=== PATIENT | male | born 1940 | race Caucasian/White ===

== ENCOUNTER → 2018-04-19 06:52 | Outpatient (CLI) | payer MEDICARE, OTHER, SELFPAY ==
--- NOTE | 2018-04-19 07:01 | CT_ITS ---
STUDY: CTA OF THE BRAIN REASON FOR EXAM: Male, 77 years old. Vertigo. History of bladder carcinoma with chemotherapy. RADIATION DOSAGE (If Supplied By Facility): CTDIvol = ( 28.78 ) mGy, DLP = ( 1592.99 ) mGycm TECHNIQUE: CT angiography was performed with a multi-detector CT scanner. Data acquisition was obtained from the skull base through the vertex following intravenous administration of 75 ml of Isovue-370. MIP images were reconstructed from the axial data set. Post-processing of the angiographic images was performed, with multiplanar reformation and 3D reconstruction. Individualized dose optimization techniques were used for this CT. COMPARISON: None. FINDINGS: Normal bilateral petrous carotid arteries. There is calcified plaque formation of the right cavernous carotid artery, without a cross-sectional luminal stenosis. There is calcified plaque formation of the left cavernous carotid artery, without a cross-sectional luminal stenosis. There is hypoplastic development of the right A1 segment of the anterior cerebral arteries with an atretic but intact artery. Normal left A1 segments of the anterior cerebral artery. Normal intact anterior communicating artery (ACOM). Normal bilateral A2 segments of the anterior cerebral arteries. Normal right M1 and M2 segments of the middle cerebral arteries, with a normal M1 bifurcation. Normal left M1 and M2 segments of the middle cerebral arteries, with a normal M1 bifurcation. There is a persistent origin of the right posterior cerebral artery with absence of the posterior communicating artery (PCOM). Normal left posterior communicating artery (PCOM). Normal bilateral vertebral arteries. Normal basilar artery with a normal basilar bifurcation. The visualized bilateral superior cerebellar (SCA) arteries are normal. Normal bilateral P1, P2 and visualized P3 segments of the posterior cerebral arteries. There is no demonstrated aneurysm of the [place]. There is no demonstrated abnormality of the visualized brain. 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 Electronically Signed: Huber Flores MD at 15:45 EST Tel [phone], Service support ,
--- NOTE | 2018-04-19 07:01 | CT_ITS ---
STUDY: CTA NECK WITH CONTRAST REASON FOR EXAM: Male, 77 years old. Vertebral. Dizziness. Patient has a history of bladder cancer and chemotherapy and radiation therapy. RADIATION DOSAGE (If Supplied By Facility): CTDIvol = ( 28.78 ) mGy, DLP = ( 15424.99 ) mGycm TECHNIQUE: CT angiography with multi-detector data acquisition was performed from the aortic arch to the skull base following intravenous administration of 75 ml of Isovue 300 contrast. MIP images were reconstructed from the axial data set. Post-processing of the angiographic images was performed, with multiplanar reformation and 3D reconstruction. Individualized dose optimization techniques were used for this CT. COMPARISON: None. FINDINGS: AORTIC ARCH: There is atherosclerotic calcific plaque formation of the aortic arch and great vessels arising from the aortic arch, without a hemodynamically significant stenosis. There is a bovine origin of the great vessels with a common origin of the brachiocephalic and left common carotid artery. Normal origin of the left subclavian artery. RIGHT CAROTID ARTERIES: Normal right common carotid artery (CCA). Normal right common carotid bulb. There is extensive atherosclerotic plaque formation of the origin of the right internal carotid artery with an estimated stenosis of greater than 70%. Normal visualized cervical portion of the right internal carotid artery. Normal origin of the right external carotid artery (ECA). LEFT CAROTID ARTERIES: Normal left common carotid artery (CCA). Normal left common carotid bulb. There is moderate atherosclerotic plaque formation of the origin of the left internal carotid artery with an estimated stenosis of 50-69% stenosis. Normal visualized cervical portion of the left internal carotid artery. Normal origin of the left external carotid artery (ECA). VERTEBRAL ARTERIES: Normal bilateral vertebral arteries. CT/CTA Neck W/WO Contrast IMPRESSION: Atherosclerotic plaque formation at the origin of the right internal carotid artery causing a greater than 70% narrowing. Atherosclerotic calcific plaque at the origin of the left internal carotid artery causing between 50 and 69% stenosis. Electronically Signed: Huber Flores MD at 15:43 EST Tel [phone], Service support ,
[2018-04-19 07:16] LABS: CREATININE FINGERSTICK 1.8 mg/dL (0.70-1.30)
== END ==
PROVIDERS: Family Provider Family Medicine; PCP Family Medicine; Referring Provider Family Medicine; Visit Provider Family Medicine
DX: R55 Syncope and collapse (principal); H81.49 Vertigo of central origin, unspecified ear
CPT/HCPCS: 70496; 70498; 93880; Q9967; A4216

== ENCOUNTER → 2020-04-17 08:29 | Outpatient (CLI) | payer MEDICARE, OTHER, SELFPAY ==
[2018-05-14 12:51] VITALS: BMI 27.3
[2020-04-17 12:15] LABS: Absolute Lymphocyte Count 1.06 X10^3/uL (0.83-4.51); Absolute Neutrophil Count 3.7 X10^3/uL (2.0-7.7); Basophil# 0.03 X10^3/uL; Basophil% 0.6 % (0-1); Eosinophil# 0.09 X10^3/uL; Eosinophils% 1.7 % (0-5); Hematocrit 38.6 % (40-54); Hemoglobin 12.5 g/dL (13.0-16.5); Lymphocyte # 1.06 X10^3/ul (4.0); Lymphocyte % 19.8 % (19-41); Mean Corp Hgb Conc 32.4 g/dL (32-36); Mean Corpuscular Volume 95.8 fL (80-94); Mean Platelet Vol. 11.1 fl (6.2-12.0); Monocyte% 9.3 % (0-10); NRBC Flagged by Analyzer 0 % (0-5); Neutrophil # 3.66 X10^3/uL (2.7-7.7); Neutrophil % 68.4 % (47-70); Platelet Count 217 K/mm3 (150-450); RBC Distribution Width CV 12.9 % (11.6-14.6); Red Blood Count 4.03 M/mm3 (4.6-6.2); White Blood Count 5.4 K/mm3 (4.4-11.0)
[2020-04-17 12:31] LABS: ALB/GLOB Ratio 0.9 RATIO (0.9-2.4); AST(SGOT) 40 U/L (15-37); Alanine Aminotransfer ALT/SGPT 57 U/L (16-61); Albumin, Serum 3.4 g/dL (3.2-5.0); Alkaline Phosphatase 102 U/L (45-117); BUN 24 mg/dL (7-18); Calcium,Total 8.3 mg/dL (8.5-10.1); Chloride 110 mmol/L (98-107); Creatinine, Serum 1.71 mg/dL (0.70-1.30); EST Glomerular Filtration Rate 41 mL/min (>60); Est Glom Filt Rate - Afr Amer 50 mL/min (>60); Globulin 3.9 g/dL (2.2-4.2); Glucose 100 mg/dL (74-106); Protein, Total 7.3 g/dL (6.4-8.2); Sodium Level 140 mmol/L (136-145)
[2020-04-17 12:32] LABS: Anion Gap 6 (5-15); PSA,Total- Diagnostic < 0.01 ng/mL (0.0-4.0)
[2020-04-17 12:59] LABS: Erythrocyte Sedimentation Rate 21 mm/hr (0-20)
== END ==
PROVIDERS: PCP Family Medicine; Visit Provider Family Medicine
DX: R10.9 Unspecified abdominal pain (principal); R19.7 Diarrhea, unspecified; Z85.46 Personal history of malignant neoplasm of prostate
CPT/HCPCS: 36415; 80053; 84153; 85025; 85652; 86140

== ENCOUNTER 2020-07-09 11:04 | Outpatient (RCR) | payer MEDICARE, OTHER, SELFPAY ==
[2018-05-14 12:51] VITALS: BMI 27.3
== END 2020-07-09 23:59 ==
LOC: IMMUN 11:04
PROVIDERS: PCP Family Medicine; Visit Provider Family Medicine
DX: Z23 Encounter for immunization (principal)
CPT/HCPCS: 0011A; 0012A; 91301

== ENCOUNTER → 2021-01-26 09:40 | Outpatient (CLI) | payer MEDICARE, OTHER, SELFPAY ==
[2018-05-14 12:51] VITALS: BMI 27.3
--- NOTE | 2021-01-26 09:41 | CDU_ITS ---
Reason For Study: CAROTID STENOSIS Rt. Velocities/BP Lt. Velocities/BP Prox CCA 95.0/12.9 cm/sec. Prox CCA 108.0/18.6 cm/sec. Mid CCA 114.2/13.8 cm/sec. Mid CCA 120.2/23.5 cm/sec. Dist CCA 82.9/12.5 cm/sec. Dist CCA 103.8/23.5 cm/sec. Prox ICA 113.1/19.9 cm/sec. Prox ICA 111.2/23.6 cm/sec. Mid ICA 102.1/18.1 cm/sec. Mid ICA 127.7/30.9 cm/sec. Dist ICA 97.2/16.8 cm/sec. Dist ICA 129.5/32.7 cm/sec. Rt. ICA/CCA = 113.1/114.2=1.0. Lt. ICA/CCA = 129.5/120.2=1.1. Prox ECA 201.0/5.7 cm/sec. Prox ECA 209.8/19.1 cm/sec. Rt. Vert. 80.7/15.0 cm/sec. Lt. Vert. 32.3/8.7 cm/sec. Right Extracranial There is homogeneous, smooth atherosclerotic plaque noted in the right common carotid artery. There is heterogeneous, irregular atherosclerotic plaque noted in the right internal carotid artery. There is heterogeneous, irregular atherosclerotic plaque noted in the right external carotid artery. Antegrade flow is noted in the right vertebral artery. Left Extracranial There is homogeneous, smooth atherosclerotic plaque noted in the left common carotid artery. There is heterogeneous, irregular atherosclerotic plaque noted in the left internal carotid artery. The atherosclerotic plaque causes acoustic shadowing. There is heterogeneous, irregular atherosclerotic plaque noted in the left external carotid artery. Antegrade flow is noted in the left vertebral artery. VL/Carotid Duplex Ultrasound Interpretation Summary Irregular calcific plaque at the proximal right internal carotid artery with le ss than 50% stenosis. Greater than 50% stenosis right external carotid artery Irregular calcific plaque at the proximal left internal and external carotid ar teries 50 to 69% stenosis left mid internal carotid artery Greater than 50% stenosis left external carotid artery Patent and antegrade vertebral arteries bilaterally Mild progression of disease on the left from the previous examination of 2017 Ordering Physician: Darwin Gould Referring Physician: Shameka Rome Performed By: Rosa Greene RDCS, RVT
== END ==
PROVIDERS: PCP Family Medicine; Referring Provider Surgery; Visit Provider Surgery
DX: I65.23 Occlusion and stenosis of bilateral carotid arteries (principal)
CPT/HCPCS: 93880

== ENCOUNTER → 2021-02-03 07:20 | Outpatient (CLI) | payer MEDICARE, OTHER, SELFPAY ==
[2021-02-03 07:31] LABS: Absolute Lymphocyte Count 1.65 X10^3/uL (0.83-4.51); Absolute Neutrophil Count 4.5 X10^3/uL (2.0-7.7); Basophil# 0.05 X10^3/uL; Basophil% 0.7 % (0-1); Eosinophil# 0.17 X10^3/uL; Eosinophils% 2.3 % (0-5); Hematocrit 41.4 % (40-54); Hemoglobin 13.8 g/dL (13.0-16.5); Lymphocyte # 1.65 X10^3/ul (0.83-4.51); Lymphocyte % 22.8 % (19-41); Mean Corp Hgb Conc 33.3 g/dL (32-36); Mean Corpuscular Hgb 32.3 pg (27.0-32.0); Mean Platelet Vol. 9.7 fl (6.2-12.0); NRBC Flagged by Analyzer 0 % (0-5); Neutrophil # 4.53 X10^3/uL (2.7-7.7); Neutrophil % 62.5 % (47-70); Platelet Count 207 K/mm3 (150-450); RBC Distribution Width CV 13.7 % (11.6-14.6); RBC Distribution Width SD 49.1 fl (35.1-43.9); Red Blood Count 4.27 M/mm3 (4.6-6.2); White Blood Count 7.3 K/mm3 (4.4-11.0)
[2021-02-03 08:10] LABS: Anion Gap 5 (5-15); BUN 28 mg/dL (7-18); BUN/Creat Ratio 16.1 RATIO (10-20); Calcium,Total 9.1 mg/dL (8.5-10.1); Chloride 111 mmol/L (98-107); Cholesterol 211 mg/dL (200); Creatinine, Serum 1.74 mg/dL (0.70-1.30); EST Glomerular Filtration Rate 40 mL/min (>60); Est Glom Filt Rate - Afr Amer 49 mL/min (>60); Glucose 105 mg/dL (74-106); High Density Lipoprotein 63 mg/dL; Potassium 3.9 mmol/L (3.5-5.1); Sodium Level 140 mmol/L (136-145); Triglycerides 130 mg/dL; Very Low Density Lipoprotein 26 mg/dL (5-40)
== END ==
PROVIDERS: PCP Family Medicine; Referring Provider Surgery; Visit Provider Surgery
DX: I65.23 Occlusion and stenosis of bilateral carotid arteries (principal)
CPT/HCPCS: 36415; 80048; 80061; 85025

== ENCOUNTER → 2021-02-22 09:33 | Outpatient (CLI) | payer MEDICARE, OTHER, SELFPAY ==
--- NOTE | 2021-02-22 09:36 | ART_ITS ---
Reason For Study: PVD Procedure A bilateral lower extremity continuous wave Doppler with analog waveform analysis,segmental pressures,and ankle brachial indexes with exercise. Left Segmental Pressures Left brachial= 148mmHg. Left thigh = 107mmHg. Left calf = 107mmHg. Left posterior tibial artery = 119mmHg. Left dorsalis pedis artery = 80mmHg. Left digit = 40 mmHg. The left dorsalis pedis waveforms are monophasic. The left posterior tibial artery waveforms are monophasic. Right Segmental Pressures Right brachial= 156mmHg. Right posterior tibial artery = 243mmHg. Right dorsalis pedis artery = 200mmHg. Right digit = 55 mmHg. The right dorsalis pedis waveforms are monophasic. The right posterior tibial artery waveforms are biphasic. Indices The right ankle brachial index by the dorsalis pedis is 1.28. The right ankle brachial index by the posterior tibial artery is 1.56. The right digital-brachial index is 0.35. The right post exercise ankle brachial index is NC. The left ankle brachial index by the dorsalis pedis is 0.51. The left ankle brachial index by the posterior tibial artery is 0.76. The left digital-brachial index is 0.26. The left post exercise ankle brachial index is 0.22. VL/Lower Ext Art Exam w/ Exercise Interpretation Summary Abnormal right PT and DP ankle-brachial index of 1.56 and 1.28 respectively sug gesting medial calcification of vessel wall. The right posterior tibial Doppler waveform is bi phasic where the dorsalis pedis is only monophasic. This would be consistent with moderately sev ere disease. The exercise component of the right lower extremity could not be obtained due to no ncompressibility The left lower extremity PT and DP ankle-brachial indices of 0.76 and 0.51 are consistent with moderately severe occlusive disease. The left posterior tibial dorsalis pedis D oppler waveforms are only monophasic suggesting a more severe level of disease.With exercise the lef t MAYURI goes from 0.762 immediately after exercise at 0.22 and there is failure recovery by 9 minutes. This is abnormal. Abnormal bilateral digital brachial indices noted at rest Ordering Physician: Darwin Gould Referring Physician: Shameka Rome Performed By: Mechelle Whitfield RVT
== END ==
PROVIDERS: PCP Family Medicine; Referring Provider Surgery; Visit Provider Surgery
DX: I73.9 Peripheral vascular disease, unspecified (principal)
CPT/HCPCS: 93924

== ENCOUNTER → 2021-11-16 | Outpatient (CLI) | payer MEDICARE, OTHER, SELFPAY | END | disposition home or self-care (01) | PROVIDERS: PCP Family Medicine; Visit Provider Family Medicine | DX: N39.0 Urinary tract infection, site not specified (principal) | CPT/HCPCS: 87077; 87086; 87088; 87186 ==

== ENCOUNTER → 2021-12-21 | Outpatient (CLI) | payer MEDICARE, OTHER, SELFPAY ==
--- NOTE | 2021-12-21 14:02 | CDU_ITS ---
Reason For Study: Carotid stenosis Rt. Velocities/BP Lt. Velocities/BP Prox CCA 108.6/13.4 cm/sec. Prox CCA 99.8/16.3 cm/sec. Mid CCA 104.7/13.4 cm/sec. Mid CCA 109.7/16.3 cm/sec. Dist CCA 78.6/9.5 cm/sec. Dist CCA 85.1/15.1 cm/sec. Prox ICA 110.4/22.6 cm/sec. Prox ICA 85.1/21.2 cm/sec. Mid ICA 112/22.5 cm/sec. Mid ICA 115.6/27.9 cm/sec. Dist ICA 121.1/24.3 cm/sec. Dist ICA 119.3/29.8 cm/sec. Rt. ICA/CCA = 1.16. Lt. ICA/CCA = 1.20. Prox ECA 226.1/6 cm/sec. Prox ECA 196/13.8 cm/sec. Rt. Vert. 54.2/13.5 cm/sec. Lt. Vert. 47.5/10.7 cm/sec. Right Extracranial There is homogeneous, smooth atherosclerotic plaque noted in the right common carotid artery. There is heterogeneous, irregular atherosclerotic plaque noted in the right internal carotid artery. There is heterogeneous, irregular atherosclerotic plaque noted in the right external carotid artery. Antegrade flow is noted in the right vertebral artery. Left Extracranial There is homogeneous, smooth atherosclerotic plaque noted in the left common carotid artery. There is heterogeneous, irregular atherosclerotic plaque noted in the left internal carotid artery. There is heterogeneous, irregular atherosclerotic plaque noted in the left external carotid artery. Antegrade flow is noted in the left vertebral artery. Procedure Carotid Duplex 94355. This is a Carotid Duplex examination using B-mode, color flow and specral Doppler. Exam performed in department. VL/Carotid Duplex Ultrasound Interpretation Summary Regular calcific plaque with shadowing right proximal internal carotid artery w ith less than 50% stenosis Greater than 50% stenosis right external carotid artery Irregular calcific plaque at the proximal left internal carotid artery with les s than 50% stenosis Less than 50% stenosis left external carotid artery Patent and antegrade vertebral arteries bilaterally Since the previous examination of January 26, 2021 the previously noted slight v elocity elevation within left internal carotid artery is not identified and findings are consiste nt with less than 50% stenosis in the internal carotid artery though close to this level. Ordering Physician: Darwin Gould Referring Physician: Shameka Rome Performed By: Mechelle Whitfield RVT
== END | disposition home or self-care (01) ==
LOC: CVS 14:00
PROVIDERS: PCP Family Medicine; Visit Provider Surgery
DX: I65.23 Occlusion and stenosis of bilateral carotid arteries (principal)
CPT/HCPCS: 93880

== ENCOUNTER → 2022-05-26 | Outpatient (CLI) | payer MEDICARE, OTHER, SELFPAY ==
--- NOTE | 2022-05-26 06:57 | CT_ITS ---
INDICATION: constipation EXAMINATION: CT ABDOMEN AND PELVIS WITH CONTRAST - CT Abdomen And Pelvis W/ Contrast Injection TECHNIQUE: Helically acquired images were obtained of the abdomen and pelvis following IV contrast. A radiation dose optimization technique was used for this scan. IV Contrast dosage and agent: 100 mL Isovue-300 Oral contrast: None. COMPARISON: Lumbar spine MRI March 10, 2015. FINDINGS: LOWER CHEST: Lung bases are clear. No cardiomegaly or pericardial effusion. Bulky marginal or calcifications. LIVER: Homogeneous parenchyma. Mild hepatomegaly.. No evidence of focal mass. GALLBLADDER AND BILIARY TREE: No calcified gallstones. No gallbladder distension or wall edema. No intra- or extrahepatic biliary ductal dilation. PANCREAS: Limited pancreas. No ductal ectasia. 6.5 mm cystic lesion within the pancreatic tail, axial image 26.. SPLEEN: Normal size without focal cystic or solid mass. ADRENAL GLANDS: No nodules. KIDNEYS AND URETERS: Normal renal size and position. No hydronephrosis. Minimal bilateral perinephric stranding which is likely senescent. No ureteral dilatation, extending to right pelvic ileal conduit. Bladder is surgically absent without evidence of recurrent mass in the surgical bed. PERITONEUM: No ascites or free air. No abscess. BOWEL: No acute gastric finding. No small bowel obstruction or focal wall thickening. Right anterior pelvic ileoconduit noted.. Normal appendix. Moderate colonic stool burden. Distal colonic diverticulosis with mild wall thickening and minimal adjacent inflammatory stranding of the sigmoid colon, sagittal image 97 LYMPH NODES: No enlarged mesenteric or retroperitoneal lymph nodes. VESSELS: Aortic atherosclerosis with mild infrarenal ectasia to 2.8 cm.. URINARY BLADDER: Unremarkable. REPRODUCTIVE ORGANS: Mall bilateral hydroceles. ABDOMINAL WALL: No discrete abdominal or pelvic wall hernia. BONES: No lytic or blastic abnormality. Lumbar laminectomy changes with posterior transpedicular fixation. No evidence of critical spinal canal stenosis. CT/Abdomen/Pelvis WITH Contrast IMPRESSION: Distal colonic diverticulosis with minimal wall thickening and adjacent inflammatory stranding at the sigmoid colon which can be seen with acute uncomplicated diverticulitis in the appropriate setting. Moderate proximal to the mid colonic stool burden. 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 Consider pancreatic MRI and MRCP with and without IV contrast to further characterize if not stable on prior exams. Status post cystectomy with ileoconduit without evidence of complication. Aortic atherosclerosis with mild infrarenal ectasia to 2.8 cm. Small scrotal hydroceles. Electronically Signed: Bobo Burton MD at 8:16 EST ,
[2022-05-26 07:30] LABS: CREATININE FINGERSTICK 1.6 mg/dL (0.70-1.30)
== END | disposition home or self-care (01) ==
LOC: CT 06:56
PROVIDERS: PCP Family Medicine; Referring Provider Internal Medicine Gastroenterology; Visit Provider Internal Medicine Gastroenterology
DX: K57.30 Diverticulosis of large intestine without perforation or abscess without bleeding (principal); I77.811 Abdominal aortic ectasia; I70.0 Atherosclerosis of aorta; R16.0 Hepatomegaly, not elsewhere classified; N43.3 Hydrocele, unspecified
CPT/HCPCS: 74177; Q9967

== ENCOUNTER → 2022-06-24 | Outpatient (CLI) | payer MEDICARE, OTHER, SELFPAY ==
--- NOTE | 2022-06-24 12:08 | MRI_ITS ---
Examination: MR MRCP without contrast. INDICATION: Question pancreatic cyst. TECHNIQUE: Multiplanar multisequence T1 and T2-weighted images were obtained. In addition a 3-D postprocessing MRCP was obtained and reviewed. COMPARISON: CT dated May 26, 2022 FINDINGS: The lung bases are clear. The liver, gallbladder spleen are within normal limits. Within the tail of the pancreas there is a 1.6 x 0.7 cm T1 hypointense and T2 hyperintense round focus consistent with a cyst. There is possible communication with the pancreatic duct. There is no pancreatic atrophy. The adrenal glands and kidneys are within normal limits. The stomach and visualized loops of small bowel are within normal limits. There is a colostomy within the right lower abdomen. There are degenerative changes of the visualized thoracic and lumbar spine. There are postsurgical changes of L5-S1. 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 Electronically Signed: Keiko Colvin MD at 16:52 EST ,
== END | disposition home or self-care (01) ==
LOC: MRI 12:08
PROVIDERS: PCP Family Medicine; Referring Provider Internal Medicine Gastroenterology; Visit Provider Internal Medicine Gastroenterology
DX: Z93.3 Colostomy status (principal); K86.2 Cyst of pancreas
CPT/HCPCS: 74181

== ENCOUNTER → 2022-08-08 | Outpatient (CLI) | payer MEDICARE, OTHER, SELFPAY ==
[2022-08-08 16:57] LABS: Amylase 46 U/L (25-115); CRP 8.63 mg/L (0.0-3.0); Lipase 252 U/L (73-393)
[2022-08-08 17:36] LABS: Erythrocyte Sedimentation Rate 8 mm/hr (0-20)
[2022-08-10 19:49] LABS: Carbohydrate AG 19-9 8 U/mL (0-35)
== END | disposition home or self-care (01) ==
LOC: LAB 15:41
PROVIDERS: PCP Family Medicine; Visit Provider Internal Medicine Gastroenterology
DX: K57.92 Diverticulitis of intestine, part unspecified, without perforation or abscess without bleeding (principal); C25.9 Malignant neoplasm of pancreas, unspecified; D49.0 Neoplasm of unspecified behavior of digestive system
CPT/HCPCS: 36415; 82150; 83690; 85652; 86140; 86301

== ENCOUNTER → 2022-11-25 | Outpatient (CLI) | payer MEDICARE, OTHER, SELFPAY ==
--- NOTE | 2022-11-25 15:22 | MRI_ITS ---
EXAM: MR ABDOMEN WITHOUT INTRAVENOUS CONTRAST, MRCP PROTOCOL CLINICAL INDICATION: surveillance IPMN TECHNIQUE: Multiplanar and multisequence MR images of the abdomen without intravenous contrast obtained with MRCP sequence. Three-dimensional post-processing reconstructions were performed. COMPARISON: CT May 26, 2022, MRCP June 24, 2022 FINDINGS: LOWER THORAX: Unremarkable. No pleural effusion. LIVER: Unremarkable. Normal morphology. GALLBLADDER AND BILE DUCTS: Common bile duct 6 mm at its midportion, tapering to 3 mm distally. No gallstones. No gallbladder distention or wall edema. PANCREAS: The cystic lesion mentioned in the tail of the pancreas appears stable from June 24, 2022, measuring roughly 1 cm maximum diameter on axial 2-D fat sat the estimated imaging compared to prior similar series. No significant dilated duct, duct in the proximal pancreas 3 mm. SPLEEN: Unremarkable. Non-enlarged. ADRENALS: Unremarkable. No nodules. KIDNEYS AND URETERS: Unremarkable. Normal renal size and position. No hydronephrosis. INTRAPERITONEAL SPACE: Unremarkable. No ascites or other fluid collection. BONES/JOINTS: On review of the CT from May 26, 2022 estimated maximum diameter 1 cm on axial images and 9 mm craniocaudal, with similar appearance on T2 weighted images, roughly 9 mm craniocaudal currently. VASCULATURE: Unremarkable. Abdominal aorta is non-dilated. LYMPH NODES: No enlarged lymph nodes. MRI/MRCP Abdomen without Contrast IMPRESSION: 1. Stable small cystic lesion in the pancreas tail compared to June 24, 2022. Follow-up pancreas protocol unenhanced CT or MRI recommended in 2 years. 2. The recommendation is based on: incidentally discovered cystic lesion in an asymptomatic patient 80 years of age or older, with a lesion less than 2.5 cm, with documented stability of less than 4 years and ACR White Paper guidelines (Fredi et al. JACR 2017; 14(7):911-923) suggest a contrast-enhanced, pancreas-protocol abdominal CT or MR in 2 years. Electronically Signed: Neli Yu MD at 22:48 EDT ,
== END | disposition home or self-care (01) ==
LOC: MRI 15:18
PROVIDERS: PCP Family Medicine; Referring Provider Nurse Practitioner Adult Health; Visit Provider Nurse Practitioner Adult Health
DX: D49.0 Neoplasm of unspecified behavior of digestive system (principal)
CPT/HCPCS: 74181

== ENCOUNTER → 2023-01-09 | Outpatient (CLI) | payer MEDICARE, OTHER, SELFPAY ==
--- NOTE | 2023-01-09 07:32 | CT_ITS ---
STUDY: CT PELVIS WITH CONTRAST REASON FOR EXAM: Male, 82 years old. Pelvic pain RADIATION DOSAGE (If Supplied By Facility): CTDIvol = ( 25.01 ) mGy, DLP = ( 1065.29 ) mGycm TECHNIQUE: Transaxial imaging of the pelvis was performed without oral contrast. IV 100mL Isovue-370 was administered intravenously. Multiplanar coronal and sagittal images were reformatted. Individualized dose optimization techniques were used for this CT. COMPARISON: 05/26/2022 FINDINGS: Bladder is absent. There is a right lower quadrant ostomy noted, no complications. Normal visualized small intestine. Retained stool in the colon along scattered colonic diverticula but no CT evidence of acute diverticulitis, or obstruction. There is no pelvic fluid. There is no pelvic lymphadenopathy or mass lesion. There is diffuse atherosclerotic calcification of the pelvic arteries. No evidence of inguinal hernia, there are bilateral hydroceles, no evidence of decubitus ulcer or subcutaneous fluid collection. Degenerative changes noted throughout the visualized lumbar spine and pelvis, surgical hardware in the lower lumbar spine free of complication, no suspicious lytic or blastic bony lesion. CT/Pelvis WITH IV Contrast IMPRESSION: No free pelvic fluid air or suspicious adenopathy Scattered colonic diverticula, no CT evidence of acute diverticulitis Bladder is surgically absent, no mass in the surgical bed. Right lower quadrant ostomy free of complication Degenerative bony changes Electronically Signed: Benny Gandhi MD at 9:00 EDT ,
[2023-01-09 07:56] LABS: CREATININE FINGERSTICK 2.2 mg/dL (0.70-1.30)
== END | disposition home or self-care (01) ==
LOC: CT 07:31
PROVIDERS: PCP Family Medicine; Referring Provider Urology; Visit Provider Urology
DX: C60.9 Malignant neoplasm of penis, unspecified (principal)
CPT/HCPCS: 72193; Q9967; A4216

== ENCOUNTER 2023-01-13 12:09 | Observation (INO) | payer MEDICARE, OTHER, SELFPAY ==
--- NOTE | 2023-01-09 07:29 | EKG12_ITS ---
Test Reason : PRE-OP Blood Pressure : / mmHG Vent. Rate : 058 BPM Atrial Rate : 058 BPM P-R Int : 212 ms QRS Dur : 144 ms QT Int : 464 ms P-R-T Axes : 056 -14 084 degrees QTc Int : 455 ms Sinus bradycardia with 1st degree A-V block Left bundle branch block Abnormal ECG No previous ECGs available Confirmed by BUTCH ZAMBRANO, TOÑITO ([id number]), health editor DENILSON IRAHETA ([id number]) on 01/09/2023 1:25:54 PM Referred By: Alfonso Donahue Confirmed By:TOÑITO RAE MD
[2023-01-09 08:53] LABS: Hematocrit 32.8 % (40-54); Hemoglobin 10.4 g/dL (13.0-16.5); Mean Corp Hgb Conc 31.7 g/dL (32-36); Mean Corpuscular Hgb 30.9 pg (27.0-32.0); Mean Corpuscular Volume 97.3 fL (80-94); Mean Platelet Vol. 10.4 fl (6.2-12.0); Platelet Count 253 K/mm3 (150-450); RBC Distribution Width CV 13.4 % (11.6-14.6); RBC Distribution Width SD 48.1 fl (35.1-43.9); Red Blood Count 3.37 M/mm3 (4.6-6.2); White Blood Count 7.9 K/mm3 (4.4-11.0)
[2023-01-09 09:29] LABS: Anion Gap 5 (5-15); BUN 31 mg/dL (7-18); BUN/Creat Ratio 16.8 RATIO (10-20); Calcium,Total 8.6 mg/dL (8.5-10.1); Chloride 106 mmol/L (98-107); Creatinine, Serum 1.85 mg/dL (0.70-1.30); EST Glomerular Filtration Rate 37 mL/min (>60); Est Glom Filt Rate - Afr Amer 45 mL/min (>60); Glucose 104 mg/dL (74-106); Sodium Level 133 mmol/L (136-145)
[2023-01-13] VITALS (9 sets, daily range): BP systolic 138–187; BP diastolic 56–77; PULSE 67–113; RESP 16–18; TEMP 36.4–36.9; O2SAT 96–97; BMI 23.3
--- NOTE | 2023-01-13 | IMM_PTH ---
PATIENT: STEVIE VANG LOC: [facility]3 U#:[id number] AGE/SX: 82/M ROOM: [facility] [place] RE01/13/[address]: Dr. Alfonso Donahue MD : 1940 BED: 1 DIS: 01/15/2023 SPEC #: [id number] RECD: 01/18/23 14:36 STATUS: LESLY REJannet #: [id number] AZIZA: 01/13/23 00:[address]: Alfonso Donahue DEPT: IMMUNOHISTOCHEMISTRY RECD BY: Stacey Varela ENTERED: 01/18/23 14:37 SP TYPE: IMMUNO OTHR DR: Dr. Shameka Rome, DO Tissues: Penis, NOS Procedures: p16 (initial) KI-67 (add) P16 (add) PHYSICIAN & INSTITUTION [place] [id number] SPECIMEN INFORMATION: Tissue Source: Penis Clinical Info: Penile cancer Specimen Number: [id number] #8 & 10 [facility] code: [id number], [id number] x3 METHODOLOGY: Deparaffinized sections of prefer/formalin-fixed tissue or PAP/DQ stained slides are incubated with monoclonal/polyclonal antibodies/oligonucleotide probes. Localization is made via biotin free immunoperoxidase method. Appropriate controls are performed and reacted as expected. Results on target cell population are indicated in the following table: RESULTS: ANTIBODY / CLONE RESULT Block 8 P16 (E6H4) positive, block staining Ki-67 (30-9) positive, high, >95% Block 10 P16 (E6H4) positive, block staining Ki-67 (30-9) positive, high, >95% These tests were developed and their performance characteristics determined by [facility]. They may not have been cleared or approved by the U.S. Food and Drug Administration. The FDA has determined that such clearance or approval is not necessary. The above immunohistochemical/dualISH markers are ordered and reviewed by the Pathologist. 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 JESSIE:jorge 01/19/2023
--- NOTE | 2023-01-13 12:50 | PEN_PTH ---
PATIENT: STEVIE VANG LOC: [facility]3 U#:[id number] AGE/SX: 82/M ROOM: IA321 RE01/13/[address]: Dr. Alfonso Donahue MD : [id number] BED: 1 DIS: 01/15/2023 SPEC #: [id number] RECD: 01/13/23 16:17 STATUS: LESLY UMANZOR #: [id number] AZIZA: 01/13/23 12:[address]: Alfonso Donahue DEPT: SURGICAL PATHOLOGY RECD BY: Eri Rossi ENTERED: 01/16/23 08:43 SP TYPE: PENIS OTHR DR: Dr. 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 See cancer summary in the comment section. SJ:jorge 01/18/2023 COMMENT PENIS CANCER SUMMARY: Procedure - total penectomy Foreskin - absent. Tumor focality - unifocal Tumor site - glans Tumor macroscopic features - cauliflower-like and ulcerated Tumor size - 5.5 x 4.5 cm and up to 2.5 cm in depth. Histologic type - squamous cell carcinoma, usual type. Histologic grade - grade 2-3, moderately to poorly differentiated Tumor thickness - 2.5 cm Tumor deep border - pushing (broadly based) Tumor extent - invades dermis and dartos fascia and focally into the dartos muscle. Distal urethral tip also shows high grade intraepithelial neoplasia/squamous cell carcinoma in situ. Lymphvascular invasion - not identified Perineural invasion - present, focal Margin status for invasive carcinoma - all margins are negative for invasive carcinoma. Distance from invasive carcinoma to closest margin - at least 3.0 cm Margin status for noninvasive carcinoma/carcinoma in situ - all margins negative for noninvasive carcinoma/carcinoma in situ. Regional lymph nodes - no lymph nodes submitted or found. 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 Ancillary studies - Please refer to IHC [id number]. PATHOLOGIC STAGE: pT1b pNx pMx The above summary is in compliance with [employer] (CAP) Cancer Protocols Checklist and [place] [employer] on Cancer (AJCC), Staging Manual, 8th Ed. Case has been reviewed in consultation with Dr. Arreaga who concurs with the above diagnosis. IDC:AM MICROSCOPIC DESCRIPTION Slides are reviewed. GROSS DESCRIPTION Received in fixative is one container labeled with the patient's name and designated penis. The specimen consists of a complete penectomy specimen measuring 12.0 x 4.0 x 4.0 cm. Most distal portion shows a portion of skin which measures up to 3.5 cm in length. Foreskin is absent. The glans penis is completely replaced by a vidal, cauliflower-like ulcerated mass measuring 5.5 x 4.5 cm. This mass invades up to a depth of 2.5 cm. The mass does not appear to be involved grossly invade into the corpora cavernosa or corpus spongiosum. The skin resection margins appear to be free of mass lesion. The specimen is inked as follows: most proximal margin - black and rest of the resection margin - blue. The skin resection margins is grossly free of the tumor. Sections of the tumor reveal vidal, solid cut surfaces. Flavor Room Worker sections are submitted as follows: 1 - most proximal resection margin, 2 & 3 - skin margin, enface, 4-11 - tumor (cassettes 6-8 contain the tumor with adjacent portion of corpora cavernosa and corpus spongiosum, cassettes 9-11 contain the tumor with glans penis and coronal sulcus), 12 & 13 - uninvolved corpora cavernosa, 14 - uninvolved corpora spongiosum. / SJ:jorge 01/17/2023 TC:0 [facility]: [id number]
[2023-01-13] MEDS: Lactated Ringers 1,000 ML 15 ML IV ×2 (12:52→16:20)
--- NOTE | 2023-01-13 14:05 | PCM.HP.STD ---
[facility] - General General Date of Admission: 01/13/23 Chief Complaint: penile cancer HPI Narrative STEVIE VANG, is a 82 M who presents for a total penectomy for penile cancer [facility] Medical History (Updated 01/03/23 @ 09:07 by Tiffanie Julian) Abdominal pain Arthritis Bladder cancer Bladder disease Cancer Carotid stenosis, bilateral Colitis Diverticulosis GERD (gastroesophageal reflux disease) Gout High cholesterol History of echocardiogram History of stress test HTN (hypertension) Osteoarthritis Prostate cancer Pulmonary nodule Syncope Wears dentures Wears glasses Wears hearing aid Home Medications omeprazole 20 mg capsule,delayed release 20 mg PO DAILY REFLUX 05/14/18 [History Last Taken 01/13/23 07:00] aspirin 81 mg tablet,delayed release 81 mg PO DAILY 03/01/21 [History Last Taken Unknown] lactulose 10 gram/15 mL oral solution 10 g (15 mL) PO DAILY #237 mL 05/23/22 [Rx Last Taken Unknown] dicyclomine 10 mg capsule 10 mg PO TID abdominal pain/spasms #270 caps 11/15/22 [Rx Last Taken 01/13/23 07:00] amlodipine 10 mg tablet 10 mg PO DAILY HIGH BLOOD PRESSUR 01/03/23 [History Last Taken 01/13/23 07:00] rosuvastatin 10 mg tablet 10 mg PO DAILY 01/03/23 [History Last Taken Unknown] Allergy/AdvReac Type Severity Reaction Status Date / Time No Known Allergies Allergy Verified 01/13/23 12:45 Family History Mother Diabetes Father Heart disease Surgical History (Updated 01/03/23 @ 09:07 by Tiffanie Julian) History of arthroscopy History of carpal tunnel release History of creation of ostomy History of hernia repair (~1969) History of lumbar fusion History of prostatectomy History of total cystectomy Social History Smoking Status: Former smoker alcohol intake: current alcohol intake frequency: 3 or more drinks per day Alcohol type: beer Vital Signs Vital Signs Vital Signs: 01/13/23 12:48 01/13/23 12:48 Temperature 98.1 F Temperature Source Temporal Pulse Rate 67 Respiratory Rate 18 Respiratory Pattern Normal Blood Pressure 167/61 H Blood Pressure Mean 96 Blood Pressure Source Monitor Blood Pressure Position Sitting Blood Pressure Location Left Arm Pulse Ox 97 Oxygen Delivery Method Room Air Weight Weight: 69.6 kg Body Mass Index (BMI) 23.3 Results Lab / Micro Data 01/09/23 08:10 01/09/23 08:10
--- NOTE | 2023-01-13 14:27 | DCINST_ITS ---
Discharge Instructions Diet Discharge Diet: No restrictions and Light diet - advance as tolerated Activity Discharge Activity: Return to Normal Activity Dressing / Incision Cleanse incision/area with: Soap & Water and Keep Dressing Clean & Dry Follow Up Care Please Follow Up With: Alfonso Donahue MD When: call for appt to remove drains Test Results: Test results from this visit will be discussed in further detail at your follow- up appointment, if applicable. Discharge Plan Admission Admit Date/Time: 01/13/23 12:09 Primary Reason for Your Visit: total penectomy for penile cancer Attending Provider: Alfonso Donahue Primary Care Provider: Shameka Rome Discharge Orders/Prescriptions Prescriptions: New oxycodone 5 mg tablet 5 mg PO Q6H PRN (Reason: pain) 7 Days Qty: 20 0RF cephalexin 500 mg capsule 500 mg PO TID Qty: 21 0RF Continued omeprazole 20 mg capsule,delayed release(DR/EC) 20 mg PO DAILY dicyclomine 10 mg capsule 10 mg PO TID Qty: 270 3RF amlodipine 10 mg tablet 10 mg PO DAILY Patient Comments: take 1 tablet by mouth once daily rosuvastatin 10 mg tablet 10 mg PO DAILY Patient Comments: take 1 tablet by mouth once daily lactulose 10 gram/15 mL solution 10 g PO DAILY Qty: 237 11RF Rx Instructions: May increase to two times a day as needed to promote bowel movement. Held aspirin 81 mg tablet,delayed release (DR/EC) 81 mg PO DAILY Hold Instructions: Resume on 01/27/23. Other Ambulatory Orders: 12 Lead EKG (Routine) Timeframe: 20230109 Location: None Selected Ordered By: Dr. Anoop Mays Referrals / Follow Up: Alfonso Donahue MD [Med Staff - Active Staff] - Shameka Rome DO [Primary Care Provider] - Disposition Disposition (needs filled in before D/C Order can be placed): Home, Self Care
[2023-01-13] MEDS: Cefazolin 2 GM in 0.9% Normal Saline 100 ML IV (14:40)
--- NOTE | 2023-01-13 15:57 | PCM.OPRPT ---
Report of Operation Date of Procedure: 01/13/23 Pre-Operative Diagnosis: Penile cancer Post-Operative Diagnosis: The same Surgery/Procedure Performed:: Total penectomy Description of Surgical Findings:: Indication is an 82-year-old male presents with a fungating mass at the end of the penis consistent with penile cancer today working to proceed with a total penectomy of note the patient has already had a cystectomy and removal of his prostate and has a diverting ileal conduit so all will be necessary today would be to proceed with the penectomy and diversion will be and not necessary since always been diverted. Patient was taken back to the operating room after smooth induction of anesthesia he was placed supine on the table the scrotum penis and testicles were prepped draped in the usual sterile fashion and shaved. I then made an elliptical incision around the base of the penis and then dissected sharply through the dermis layer down to the base of the penis circumferentially I then dissected along the urethra following the urethra as distally as parsed possible until it curled underneath the pubic bone and there was no further I could go any further and then I came across to the urethra with a right angle clamp and then transected the urethra and then oversewed the end of the urethra stump. I then followed the penis down on the right side following the Keral all the way down retropubically as far as possible and then used a right angle clamp to get down on the Keral body as far as possible and then clamped down on the Keral body and then transected the crural body to transect the right half of the penis. We then oversewed the crural body. I then went to the left side and went down as far as possible retropubically underneath the pubic bone on the curl body and then put a right angled on the Fredi body and then so this shot with continuous 0 Vicryl stitches we then put extra suture in the crural body and also then dorsal vein complex to control bleeding at the end with no oozing and there was good hemostasis I then placed 1 RIAZ drain deep in the space in the pelvis and then put a second space and then we reapproximated the scrotal skin to the pubic bone skin and reapproximated the skin layers together with 0 Vicryl and chromic stitches and then ran the skin closed with a 4-0 Monocryl. The penis was then taken as a specimen. And completed the complete penectomy and no diversion had to be done since he already has a diverting ileal conduit. Fluffs and dressings were placed the drains placed on suction and he was taken back to PACU in good condition he will recover in the hospital over the weekend. Surgeon: Alfonso Donahue Type of Anesthesia: General Drains: RIAZ drain x 2 Estimated Blood Loss (mL): 25 Admit VTE Documentation VTE Present on Admission: No VTE Mechan Device Prophylaxis: SCD's VTE Pharm Prophylaxis ordered?: No
--- NOTE | 2023-01-13 16:10 | EKG12_ITS ---
Test Reason : PRE OP Blood Pressure : / mmHG Vent. Rate : 070 BPM Atrial Rate : 070 BPM P-R Int : 184 ms QRS Dur : 168 ms QT Int : 468 ms P-R-T Axes : 063 003 126 degrees QTc Int : 505 ms Normal sinus rhythm Left bundle branch block Abnormal ECG When compared with ECG of 09-JAN-2023 07:52, QRS duration has increased QT has lengthened Confirmed by BUTCH ZAMBRANO, TOÑITO ([id number]), purchasing expeditor DENILSON IRAHETA ([id number]) on 01/17/2023 9:49:06 AM Referred By: Alfonso Donahue Confirmed By:TOÑITO RAE MD
[2023-01-13] MEDS: 0.9% Normal Saline 1,000 ML 125 ML IV (17:54)
[2023-01-13] MEDS: HYDROcodone Bitartrate/Apap 5/325 Tablet PO (19:03)
[2023-01-13] MEDS: Cefazolin 1 GM/50 ML BAG IV (23:36)
[2023-01-14] MEDS: 0.9% Normal Saline 1,000 ML 125 ML IV ×3 (02:01→18:12)
[2023-01-14 02:03] VITALS: BP 130/62; PULSE 61; RESP 18; TEMP 36.6; O2SAT 96
[2023-01-14] MEDS: HYDROcodone Bitartrate/Apap 5/325 Tablet PO ×3 (02:10→16:06)
[2023-01-14] MEDS: Cefazolin 1 GM/50 ML BAG IV (06:40)
[2023-01-14 07:14] VITALS: O2SAT 96
[2023-01-14 08:00] VITALS: BP 145/62; PULSE 62; RESP 18; TEMP 36.4; O2SAT 97
[2023-01-14] MEDS: Pantoprazole Sodium 20 MG Tablet PO (08:40)
[2023-01-14] MEDS: Dicyclomine 10 MG Capsule PO ×4 (08:40→21:47)
[2023-01-14] MEDS: amLODIPine 10 MG Tablet PO (08:40)
--- NOTE | 2023-01-14 08:47 | PCM.PN.GU ---
Subjective Subjective 82-year-old male status post penectomy for penile cancer doing well superficial drain is minimally draining deeper drain minimal output. He can get out of bed and ambulate walk shower etc. advance to regular diet Objective Data Objective Data Incision clean and intact RIAZ drains minimal output Vital Signs: Vital Signs Temp Pulse Resp BP Pulse Ox O2 Del Method 97.8 F 61 18 130/62 H 96 Room Air 01/14/23 02:03 01/14/23 02:03 01/14/23 02:03 01/14/23 02:03 01/14/23 07:14 01/14/23 07:14 Oxygen Delivery Method Room Air Weight: 69.6 kg Body Mass Index (BMI) 23.3 Intake & Output: Intake and Output for Last 24 Hours 01/12/23 01/13/23 01/14/23 23:59 23:59 23:59 Intake Total 1110 / 1110 1850 / 1850 Output Total 845 / 845 1040 / 1040 Balance 265 / 265 810 / 810 Lab / Micro Data 01/09/23 08:10 01/09/23 08:10 Assessment & Plan Assessment/Plan (1) Penile cancer: PLAN: Status post penectomy doing well anticipate discharge home tomorrow with drain probably will remove the superficial drain since is not draining anymore.
--- NOTE | 2023-01-14 11:53 | CASEMGMT ---
Social Work SW met with patient and introduced self and role as [facility] SW. Patient lying on hospital bed and agreeable to speak with SW. SW inquired about patient's HCPOA and LW. Patient reports both documents are completed but unable to recall who he identified as his HCPOA. Patient explained he lost his a couple of months ago and may need to update his HCPOA. SW encouraged the patient to review and contact [facility] [employer]aker if he needs assistance with completing documents; otherwise, patient should bring in a copy to add to his chart. Patient reports understanding and has no other needs. Mami Ellis MSW, ANOOP
[2023-01-14 14:00] VITALS: BP 170/56; PULSE 72; RESP 18; TEMP 36.5; O2SAT 100
--- NOTE | 2023-01-14 16:23 | CASEMGMT ---
DARREN BUTTS in to complete MEND[employer]ZA form with patient. DARREN BUTTS explained MENDOZA form to patient, patient voiced understanding. Patient signed MENDOZA form and filed in chart. Patient provided copy of signed MENDOZA form. DARREN BUTTS inquired about needs at discharge. Patient declined HHC at discharge and states daughter will be helping him at home. Patient states he has access to walker at home if needed. Patient declined further questions or concerns at this time.
[2023-01-14 20:44] VITALS: BP 151/57; PULSE 71; RESP 18; TEMP 36.6; O2SAT 97
[2023-01-15] MEDS: HYDROcodone Bitartrate/Apap 5/325 Tablet PO ×2 (04:58→11:20)
[2023-01-15 04:59] VITALS: BP 158/57; PULSE 73; RESP 18; TEMP 36.4; O2SAT 95
[2023-01-15] MEDS: Dicyclomine 10 MG Capsule PO ×2 (06:17→10:48)
[2023-01-15 07:16] VITALS: O2SAT 97
[2023-01-15] MEDS: amLODIPine 10 MG Tablet PO (09:18)
[2023-01-15] MEDS: Pantoprazole Sodium 20 MG Tablet PO (09:18)
[2023-01-15] MEDS: 0.9% Saline Lock 10 ML Syringe IV (09:23)
--- NOTE | 2023-01-15 10:22 | PCM.PN.GU ---
Subjective Subjective 82-year-old male status post radical penectomy for penile cancer he is doing well. Drains removed. Tolerating regular diet clinically stable he can go home today and follow-up in my office in 1 week for checkup instructions were given he was given antibiotics and some pain medicine as needed. Objective Data Objective Data Vital Signs: Vital Signs Temp Pulse Resp BP Pulse Ox O2 Del Method 97.6 F L 73 18 158/57 H 97 Room Air 01/15/23 04:59 01/15/23 04:59 01/15/23 04:59 01/15/23 04:59 01/15/23 07:16 01/15/23 07:16 Oxygen Delivery Method Room Air Weight: 69.6 kg Body Mass Index (BMI) 23.3 Intake & Output: Intake and Output for Last 24 Hours 01/13/23 01/14/23 01/15/23 23:59 23:59 23:59 Intake Total 1110 / 1110 5460 / 5460 1000 / 1000 Output Total 845 / 845 2508 / 2508 1215 / 1215 Balance 265 / 265 2952 / 2952 -215 / -215 Lab / Micro Data 01/09/23 08:10 01/09/23 08:10
[2023-01-15 11:00] VITALS: BP 172/68; PULSE 85; RESP 18; TEMP 36.6; O2SAT 94
== END 2023-01-15 11:55 | disposition home or self-care (01) ==
LOC: MS3 14:35 → ACINP 14:35
PROVIDERS: Anesthesiology; Admitting Provider Urology; PCP Family Medicine; Referring Provider Urology; Visit Provider Urology
PROC: (CPT 54120; principal; 2023-01-13 12:40)
DX: C60.9 Malignant neoplasm of penis, unspecified (principal); I77.9 Disorder of arteries and arterioles, unspecified; E78.00 Pure hypercholesterolemia, unspecified; Z79.82 Long term (current) use of aspirin; Z87.891 Personal history of nicotine dependence; I10 Essential (primary) hypertension; Z85.46 Personal history of malignant neoplasm of prostate; Z79.899 Other long term (current) drug therapy; Z85.51 Personal history of malignant neoplasm of bladder; K21.9 Gastro-esophageal reflux disease without esophagitis
CPT/HCPCS: 54125; 00932; 36415; 80048; 85027; 88307; 88309; 88341; 88342; 93005; 94668; 96361; 96365; 96366; 99221; J7030; J7120; A4216; G0378; J2405

== ENCOUNTER → 2023-05-31 | Outpatient (CLI) | payer MEDICARE, OTHER, SELFPAY ==
--- NOTE | 2023-05-31 12:48 | CT_ITS ---
STUDY: CT ABDOMEN AND PELVIS WITH CONTRAST REASON FOR EXAM: Male, 82 years old. BLADDER CA RADIATION DOSAGE (If Supplied By Facility): CTDIvol = ( 13.27 ) mGy, DLP = ( 1442.85 ) mGycm TECHNIQUE: Transaxial images were obtained from the dome of the diaphragm to the symphysis pubis without oral contrast. IV 75mL Isovue-370 was administered. Sagittal and coronal images were reconstructed. Individualized dose optimization techniques were used for this CT. COMPARISON: Comparison is made with prior study dated May 26, 2022. FINDINGS: The visualized lung bases are unremarkable. Calcification of the mitral valve annulus. Coronary artery calcification. Normal liver. Normal gallbladder and extrahepatic biliary system. Normal spleen. Stable 6.5 mm cyst in the tail portion of the pancreas. Normal bilateral adrenal glands. Normal right kidney. Left renal atrophy. Normal visualized stomach. Normal small intestine. There are multiple colonic diverticula consistent with diverticulosis. The appendix is visualized and appears normal. There is diffuse atherosclerotic calcification of the abdominal aorta, without a demonstrated aneurysm. Normal inferior vena cava. Normal retroperitoneum. The patient is status post cystectomy. An ileal loop is seen in the right lower quadrant. Multiple surgical clips are seen in the pelvis in keeping with prior cystectomy and probable lymphadenectomy. Small right hydrocele. Normal abdominal wall. Prior interpedicular screw fixation at the L5-S1 level. CT/Abdomen/Pelvis W IV Cont ONLY IMPRESSION: Status post bladder resection with ileal loop in the right lower quadrant. Stable 6.5 mm cyst in the pancreatic tail. Electronically Signed: Huber Flores MD at 14:18 EST ,
[2023-05-31 13:17] LABS: CREATININE FINGERSTICK 1.9 mg/dL (0.70-1.30)
== END | disposition home or self-care (01) ==
LOC: CT 12:45
PROVIDERS: PCP Family Medicine; Referring Provider Urology; Visit Provider Urology
DX: C60.1 Malignant neoplasm of glans penis (principal); C67.9 Malignant neoplasm of bladder, unspecified
CPT/HCPCS: 74177; Q9967

== ENCOUNTER → 2023-12-12 | Outpatient (CLI) | payer MEDICARE, OTHER, SELFPAY ==
--- NOTE | 2023-12-12 08:48 | CDU_ITS ---
Reason For Study: follow up carotid stenosis Rt. Velocities/BP Lt. Velocities/BP Prox CCA 97.1/10.2 cm/sec. Prox CCA 102.5/15.7 cm/sec. Mid CCA 100.3/12.4 cm/sec. Mid CCA 115.8/17.6 cm/sec. Dist CCA 77.3/11.3 cm/sec. Dist CCA 94.9/15.1 cm/sec. Prox ICA 74.0/13.9 cm/sec. Prox ICA 110.1/18.8 cm/sec. Mid ICA 106.0/20.0 cm/sec. Mid ICA 106.5/20.6 cm/sec. Dist ICA 103.5/17.6 cm/sec. Dist ICA 115.6/20.6 cm/sec. Rt. ICA/CCA = 1.1. Lt. ICA/CCA = 1.0. Prox ECA 221.1/11.1 cm/sec. Prox ECA 200.4/5.0 cm/sec. Rt. Vert. 31.5/6.9 cm/sec. Lt. Vert. 70.0/9.7 cm/sec. Right Extracranial There is heterogeneous, smooth atherosclerotic plaque noted in the right common carotid artery. There is heterogeneous, irregular atherosclerotic plaque noted in the right internal carotid artery. There is heterogeneous, irregular atherosclerotic plaque noted in the right external carotid artery. Antegrade flow is noted in the right vertebral artery. Left Extracranial There is heterogeneous, irregular atherosclerotic plaque noted in the left common carotid artery. There is heterogeneous, irregular atherosclerotic plaque noted in the left internal carotid artery. There is heterogeneous, irregular atherosclerotic plaque noted in the left external carotid artery. Antegrade flow is noted in the left vertebral artery. Procedure Carotid Duplex [id number]. This is a Carotid Duplex examination using B-mode, color flow and specral Doppler. The exam was diagnostic. Exam performed in department. VL/Carotid Duplex Ultrasound Interpretation Summary Irregular calcific plaque with shadowing right proximal internal carotid artery with less than 50% stenosis Greater than 50% stenosis right external carotid artery Irregular calcific plaque at the proximal left internal carotid artery with les s than 50% stenosis Greater than 50% stenosis left external carotid artery Patent and antegrade vertebral arteries bilaterally Progression of left external carotid stenosis since 12/21/2021. Ordering Physician: Darwin Gould Referring Physician: Darwin Gould Performed By: Maynor Santana RVT
== END | disposition home or self-care (01) ==
LOC: CVS 08:46
PROVIDERS: PCP Family Medicine; Referring Provider Surgery; Visit Provider Surgery
DX: I65.22 Occlusion and stenosis of left carotid artery (principal)
CPT/HCPCS: 93880

== ENCOUNTER → 2024-03-19 | Outpatient (CLI) | payer MEDICARE, OTHER, SELFPAY ==
[2024-03-19 12:28] LABS: Absolute Lymphocyte Count 1.47 X10^3/uL (0.83-4.51); Absolute Neutrophil Count 5.5 X10^3/uL (2.0-7.7); Basophil# 0.06 X10^3/uL; Basophil% 0.8 % (0-1); Eosinophil# 0.23 X10^3/uL; Eosinophils% 2.9 % (0-5); Hematocrit 36.1 % (40-54); Hemoglobin 11.4 g/dL (13.0-16.5); Lymphocyte # 1.47 X10^3/ul (0.83-4.51); Lymphocyte % 18.6 % (19-41); Mean Corp Hgb Conc 31.6 g/dL (32-36); Mean Corpuscular Hgb 29.8 pg (27.0-32.0); Mean Corpuscular Volume 94.5 fL (80-94); Mean Platelet Vol. 11.3 fl (6.2-12.0); Monocyte# 0.56 X10^3/uL; Monocyte% 7.1 % (0-10); NRBC Flagged by Analyzer 0 % (0-5); Neutrophil # 5.54 X10^3/uL (2.7-7.7); Neutrophil % 70.1 % (47-70); Platelet Count 255 K/mm3 (150-450); RBC Distribution Width CV 14.3 % (11.6-14.6); RBC Distribution Width SD 49.1 fl (35.1-43.9); Red Blood Count 3.82 M/mm3 (4.6-6.2); White Blood Count 7.9 K/mm3 (4.4-11.0)
[2024-03-19 13:08] LABS: ALB/GLOB Ratio 0.9 RATIO (0.9-2.4); AST(SGOT) 18 U/L (15-37); Alanine Aminotransfer ALT/SGPT 17 U/L (16-61); Albumin, Serum 3.5 g/dL (3.2-5.0); Alkaline Phosphatase 100 U/L (45-117); Anion Gap 9 (5-15); BUN 26 mg/dL (7-18); Calcium,Total 9.2 mg/dL (8.5-10.1); Chloride 110 mmol/L (98-107); Cholesterol 218 mg/dL (200); Creatinine, Serum 2.16 mg/dL (0.70-1.30); EST Glomerular Filtration Rate 31 mL/min (>60); Est Glom Filt Rate - Afr Amer 38 mL/min (>60); Globulin 3.9 g/dL (2.2-4.2); Glucose 115 mg/dL (74-106); High Density Lipoprotein 51 mg/dL; Potassium 3.6 mmol/L (3.5-5.1); Protein, Total 7.4 g/dL (6.4-8.2); Sodium Level 140 mmol/L (136-145); Triglycerides 162 mg/dL; Uric Acid 5.5 mg/dL (3.5-7.2); Very Low Density Lipoprotein 32 mg/dL (5-40)
== END | disposition home or self-care (01) ==
LOC: BFHLAB 09:51
PROVIDERS: PCP Family Medicine; Referring Provider Family Medicine; Visit Provider Family Medicine
DX: I12.9 Hypertensive chronic kidney disease with stage 1 through stage 4 chronic kidney disease, or unspecified chronic kidney disease (principal); N18.32 Chronic kidney disease, stage 3b; M10.9 Gout, unspecified
CPT/HCPCS: 36415; 80053; 80061; 84550; 85025

== ENCOUNTER → 2024-09-10 | Outpatient (CLI) | payer MEDICARE, OTHER, SELFPAY ==
[2024-09-10 12:27] LABS: Absolute Lymphocyte Count 1.57 X10^3/uL (0.83-4.51); Absolute Neutrophil Count 4.8 X10^3/uL (2.0-7.7); Basophil# 0.06 X10^3/uL; Basophil% 0.8 % (0-1); Eosinophil# 0.22 X10^3/uL; Hematocrit 33.5 % (40-54); Lymphocyte # 1.57 X10^3/ul (0.83-4.51); Lymphocyte % 21.5 % (19-41); Mean Corp Hgb Conc 32.8 g/dL (32-36); Mean Corpuscular Hgb 30.2 pg (27.0-32.0); Mean Platelet Vol. 10.8 fl (6.2-12.0); Monocyte% 8.2 % (0-10); NRBC Flagged by Analyzer 0 % (0-5); Neutrophil # 4.79 X10^3/uL (2.7-7.7); Neutrophil % 65.7 % (47-70); Platelet Count 254 K/mm3 (150-450); RBC Distribution Width CV 14.2 % (11.6-14.6); RBC Distribution Width SD 48.1 fl (35.1-43.9); Red Blood Count 3.64 M/mm3 (4.6-6.2); White Blood Count 7.3 K/mm3 (4.4-11.0)
[2024-09-10 12:46] LABS: ALB/GLOB Ratio 1.4 RATIO (0.9-2.4); AST(SGOT) 20 U/L (<=37); Alanine Aminotransfer ALT/SGPT 11 U/L (<=46); Alkaline Phosphatase 100 U/L (40-129); Anion Gap 11 (5-15); BUN 23 mg/dL (4-19); BUN/Creat Ratio 11.2 RATIO (10-20); Calcium,Total 9.2 mg/dL (7.6-11.0); Carbon Dioxide 18.7 mmol/L (21.0-32.0); Chloride 107 mmol/L (98-108); Cholesterol 191 mg/dL (<=200); Creatinine, Serum 2.08 mg/dL (0.70-1.20); EST Glomerular Filtration Rate 31 (>60); Glucose 103 mg/dL (70-99); High Density Lipoprotein 57 mg/dL; Low Density Lipoprotein Calc. 110 mg/dL; Potassium 3.9 mmol/L (3.3-5.1); Sodium Level 137 mmol/L (133-145); Total Bilirubin 0.19 mg/dL (0.00-1.30); Triglycerides 123 mg/dL; Very Low Density Lipoprotein 25 mg/dL (5-40); cholesterol:hdl ratio screen 3.37
== END | disposition home or self-care (01) ==
LOC: BFHLAB 09:39
PROVIDERS: PCP Family Medicine; Visit Provider Family Medicine
DX: I12.9 Hypertensive chronic kidney disease with stage 1 through stage 4 chronic kidney disease, or unspecified chronic kidney disease (principal); N18.32 Chronic kidney disease, stage 3b; I73.9 Peripheral vascular disease, unspecified
CPT/HCPCS: 36415; 80053; 80061; 85025

== ENCOUNTER → 2024-12-12 | Outpatient (CLI) | payer MEDICARE, OTHER, SELFPAY | END | disposition home or self-care (01) | LOC: CVS 12:46 | PROVIDERS: PCP Family Medicine; Referring Provider Surgery Trauma Surgery; Visit Provider Surgery Trauma Surgery | DX: I65.22 Occlusion and stenosis of left carotid artery (principal) | CPT/HCPCS: 93880 ==